=== PATIENT | male | born 1970 | race Caucasian/White ===

== ENCOUNTER 2017-07-11 01:38 | Emergency (ER) | payer OTHER ==
[~2017-07-11] VITALS: Ht 170.2 cm; Wt 90.9 kg
[2017-07-11] MEDS ORDERED: PERTUSS(ACELL),DIPH,TET VAC/PF 0.5 ML VIAL IM ONE (03:45)
[2017-07-11 04:00] VITALS: BP 142/87
[2017-07-11] MEDS ORDERED: KETOROLAC TROMETHAMINE 30 MG/ML VIAL IM ONE (04:00)
== END 2017-07-11 05:06 | disposition home or self-care (01) ==
LOC: EMS 01:40
DX: S90.512A Abrasion, left ankle, initial encounter (principal); F17.210 Nicotine dependence, cigarettes, uncomplicated; W22.8XXA Striking against or struck by other objects, initial encounter; Y93.89 Activity, other specified; Y92.89 Other specified places as the place of occurrence of the external cause; Y99.8 Other external cause status
CPT/HCPCS: 73590; 73610; 90471; 90715; 96372; 99284; J1885